=== PATIENT | male | born 1945 | race Hispanic/Latino ===

== ENCOUNTER → 2018-06-08 | Outpatient (CLI) | payer OTHER ==
[~2018-06-08] MED LIST: GADODIAMIDE 10 MMOL/20 ML ML IV ONE
== END | disposition home or self-care (01) ==
LOC: RAH 10:38
PROVIDERS: ATTEND Internal Medicine Gastroenterology
DX: N28.1 Cyst of kidney, acquired (principal); K76.89 Other specified diseases of liver
CPT/HCPCS: 74183; A9579

== ENCOUNTER → 2018-10-26 | Outpatient (CLI) | payer OTHER | END | disposition home or self-care (01) | LOC: RAH 07:29 | PROVIDERS: ATTEND Internal Medicine Gastroenterology | DX: N28.1 Cyst of kidney, acquired (principal); K76.89 Other specified diseases of liver | CPT/HCPCS: 76700 ==

== ENCOUNTER → 2019-07-12 | Outpatient (CLI) | payer OTHER ==
[~2019-07-12] MED LIST changes: -GADODIAMIDE 10 MMOL/20 ML ML IV ONE; +IOHEXOL 350 MG/ML 100ML INFUS..BTL IV ONE
== END | disposition home or self-care (01) ==
LOC: RAH 07:35
PROVIDERS: ATTEND Internal Medicine Gastroenterology
DX: R94.5 Abnormal results of liver function studies (principal); R93.3 Abnormal findings on diagnostic imaging of other parts of digestive tract; J98.11 Atelectasis
CPT/HCPCS: 74170; Q9967

== ENCOUNTER → 2024-12-11 | Outpatient (CLI) | payer OTHER ==
[2024-12-11 09:13] LABS: IMMATURE GRANULOCYTE ABSOLUTE 0.02 K/uL (0-1); NUCLEATED RED BLOOD CELLS 0.0 % (0.0-0.19); PLATELET COUNT (AUTO) 147 K/uL (130-400); RED BLOOD CELL COUNT(AUTO) 4.72 MIL/uL (4.50-6.20); RED CELL DISTRIBUTION WIDTH 14.0 % (11.0-15.5); WHITE BLOOD COUNT (AUTO) 5.3 K/uL (4.8-10.8)
[2024-12-11 09:37] LABS: CREATININE 1.6 mg/dL (0.5-1.3); GLOMERULAR FILTR. RATE CALC 43.0 mL/min (>90); UREA NITROGEN, BLOOD 24.0 mg/dL (7-18)
[2024-12-11 09:39] LABS: % IRON SATURATION 38.1 % (30-44); IRON, SERUM 92.0 mcg/dL (65-175)
== END | disposition home or self-care (01) ==
LOC: LAB 08:38
PROVIDERS: ATTEND Internal Medicine Gastroenterology
DX: D64.9 Anemia, unspecified (principal); K74.02 Hepatic fibrosis, advanced fibrosis; Q44.6 Cystic disease of liver
CPT/HCPCS: 36415; 82565; 82728; 83540; 83550; 84520; 85025

== ENCOUNTER → 2024-12-25 | Outpatient (CLI) | payer OTHER ==
[~2024-12-25] MED LIST changes: -IOHEXOL 350 MG/ML 100ML INFUS..BTL IV ONE; +IOHEXOL-350 75 ML VIAL IV ONE
--- NOTE | 2024-12-26 00:51 | HMCIMG ---
EXAM: CT Abdomen with Intravenous Contrast CLINICAL HISTORY: History of hepatic fibrosis. Cystic disease of liver. TECHNIQUE: Axial computed tomography images of the abdomen with intravenous contrast. Oral contrast was also administered. Dose reduction technique was used including one or more of the following: automated exposure control, adjustment of mA and kV according to patient size, and/or iterative reconstruction. CONTRAST: With COMPARISON: None provided. FINDINGS: LUNG BASES: There are a few 2-4 mm sized pulmonary solid nodules in the right middle lobe, lingula and the right lower lobe with the largest in the right lower lobe measuring 1 cm. No basilar airspace consolidation or pleural effusion. LIVER: Hepatic surface nodularity, more prominent in the left lobe, which may represent cirrhosis. There is a rim calcified cystic lesion measuring 8 x 9.2 x 9.4 cm, seen to be arising from the segment III of the left hepatic lobe, appearing exophytic and extending inferiorly toward the right paracolic gutter. The inferior parts of the lesions demonstrate dense wall calcification which are slightly crumpled. Post-contrast, there is no enhancement of the hepatic exophytic lesion. GALLBLADDER AND BILE DUCTS: The gallbladder is unremarkable. No calcified stone. No ductal dilation. PANCREAS: Unremarkable. SPLEEN: Unremarkable. ADRENAL GLANDS: The both adrenals are unremarkable. KIDNEYS AND URETERS: Rim calcified left renal hypodensity in the interpolar region of the upper pole measuring 1.8 cm is noted. The left renal lesion also does not show any enhancement. Additionally, there are subcentimetric non-calcified simple cysts in the left kidney. Per consensus, no follow-up is needed for simple Bosniak type 1 and 2 renal cysts, unless the patient has a malignancy history or risk factors. Focal cortical scarring is present anteriorly in the interpolar region of the left kidney. The right kidney is atrophic and shrunken. No hydronephrosis or nephrolithiasis. STOMACH AND BOWEL: There is a small sized hiatal hernia present. There are colonic diverticula, without diverticulitis. A moderate amount of fecal material is present in the colon. The appendix is unremarkable. No obstruction. No wall thickening. No CT evidence of colitis. PERITONEUM: No free fluid. No free air. LYMPH NODES: No lymphadenopathy. VASCULATURE: The abdominal aorta demonstrates atheromatous calcification without aneurysm or dissection. ABDOMINAL WALL AND SOFT TISSUES: There is a small umbilical hernia containing fat with a defect measuring 0.8 cm in width. BONES: No acute osseous abnormality. IMPRESSION: 1. Hepatic surface nodularity, more prominent in the left lobe, possibly representing cirrhosis. 2. Rim calcified cystic lesion in the left hepatic lobe (segment III) measuring 8 x 9.2 x 9.4 cm, exophytic and extending inferiorly toward the right paracolic gutter, without post-contrast enhancement. This may represent a parasitic cyst. 3. Bosniak class IIF and class I left renal cysts. /Leonard
== END | disposition home or self-care (01) ==
LOC: RAH 07:25
PROVIDERS: ATTEND Internal Medicine Gastroenterology
DX: N28.1 Cyst of kidney, acquired (principal); R91.8 Other nonspecific abnormal finding of lung field; K76.89 Other specified diseases of liver; N28.89 Other specified disorders of kidney and ureter; K44.9 Diaphragmatic hernia without obstruction or gangrene; I70.0 Atherosclerosis of aorta; K42.9 Umbilical hernia without obstruction or gangrene; K74.02 Hepatic fibrosis, advanced fibrosis; Q44.6 Cystic disease of liver
CPT/HCPCS: 74170; Q9967